=== PATIENT | female | born 1985 | race Two or more races ===

== ENCOUNTER 2024-12-05 10:00 | Outpatient (RCR) | payer MEDICAID, SELFPAY ==
--- NOTE | 2024-11-09 10:15 | PT.OIERPT ---
PT OP Initial Eval Patient Information Outpatient Physical Therapy Treatment Date: 11/09/24 Visit Reasons: BACK PAIN Medical Diagnosis: M51.361 Treatment Dx #1: Back Pain Start of Care: 11/09/24 Smoking Status Smoking Status: Never smoker Initial Assessment Subjective: Pt is a 39 y/o female reports of chronic back pain (01/18) with intermittent pain down the legs. Pt has limitation with sitting, standing, chores, self care, and performing recreational activities. Objective: L/S AROM: all motions are WFL Hip PROM: all motions are WFL Hip MMTs: grossly 4-/5 Special Test (+) SLR (+) GERARDO's (+) slump Assessment: Pt demonstrate back pain with mobility deficits leading to difficulty with ADLs. Pt will attempt physical therapy if pain persist Pt will be refer back to provider for further consultation. Short Term and [employer] Goals 1) Increase L/S AROM WFL in 6 wks to be able to perform recreational activities 2) Decrease back pain to 2/10 in 6 wks to be able to sit and stand more than 30 mins 3) Increase core strength WFL in 6 wks to be able to perform lifting activities 4) Increase hip MMTs grossly 4/5 in 6 wks to be able to walk more than 30 mins 5) Indep with HEP Treatment Plan 1) Manual Therapy 2) Therapeutic Activities 3) Therapeutic Exercises 4) Modalities (ice, heat, traction) Frequency and Duration: 2 x wk for 6 wks Certification Dates: 11/09/24 to 02/09/25 Procedure Charges OP PT Eval Mod Complex 30 minutes: Yes
--- NOTE | 2024-11-16 11:59 | PT.ODAYNRPT ---
PT Outpatient Daily Note OP Daily Note Outpatient Physical Therapy Treatment Date: 11/16/24 Visit Reasons: BACK PAIN Subjective: Pt's back pain is about the same. No change in overall symptoms Objective: Please see flow chart for list of ther ex performed Assessment: tolerate exercises with minimal pain; cues to pace and decrease fatigue since patient has the tendency to perform all exercise with minimal rest Plan: Continue with PT Length of Time (minutes) of Treatment: 30 Minutes Procedure Charges Therapeutic Exercise 30 minutes: Yes
--- NOTE | 2024-11-23 10:58 | PT.ODAYNRPT ---
PT Outpatient Daily Note OP Daily Note Outpatient Physical Therapy Treatment Date: 11/23/24 Visit Reasons: BACK PAIN Subjective: Pt's back is about the same still has pain intermittently. Objective: Please see flow chart for list of ther ex performed Assessment: tolerate exercises with minimal pain Plan: Continue with PT Length of Time (minutes) of Treatment: 30 Minutes Procedure Charges Therapeutic Exercise 30 minutes: Yes
--- NOTE | 2024-12-05 12:02 | PT.ODAYNRPT ---
PT Outpatient Daily Note OP Daily Note Outpatient Physical Therapy Treatment Date: 12/05/24 Visit Reasons: BACK PAIN Subjective: Pt's back is about the same. No change in overall symptoms. Objective: Please see flow chart for list of ther ex performed Assessment: tolerate exercises with minimal pain Plan: Continue with PT Length of Time (minutes) of Treatment: 30 Minutes Procedure Charges Therapeutic Exercise 30 minutes: Yes
== END 2024-12-09 23:59 | disposition home or self-care (01) ==
LOC: CPTX 10:00
PROVIDERS: PCP Specialist; Referring Provider Specialist; Visit Provider Specialist
DX: M51.361 Other intervertebral disc degeneration, lumbar region with lower extremity pain only (principal)
CPT/HCPCS: 97110; 97162

== ENCOUNTER 2024-12-20 10:24 | Outpatient (RCR) | payer MEDICAID, SELFPAY ==
--- NOTE | 2024-12-20 11:23 | PT.ODS1RPT ---
PT OP Progress/Discharge Note Date of Service: 12/20/24 Progress Note/DC Note Progress Note/Discharge Note: DC Note Patient Information Visit Reasons: Back pain Medical Diagnosis: M51.361 Treatment Dx #1: Back Pain Service Discharge Date: 12/20/24 Status Subjective: Pt's back is not better. Pt seems to have more pain lately since she works 6 days out of the week. Pt continues to have intermittent pain down the legs. Pt has limitation with sitting, standing, lifting, chores, and performing work duties. Pt will like to follow up with specialist for further consultation. Objective: L/S AROM: all motions are WFL Hip PROM: all motions are WFL Hip MMTs: grossly 4-/5 Special Test (+) slump (+) SLR (+) GERARDO's Assessment: Pt continues to have back pain with mobility deficits leading to difficulty with ADLs. Pt will no longer benefit from physical therapy due to minimal progress towards goals. Pt was instructed on HEP last session and educated to continue exercises to maintian overall mobility. Pt performed all exercises safely, thank you for your referrals. Plan: D/C home with HEP and follow up with MD MONDRAGON Procedure Charges Therapeutic Exercise 30 minutes: Yes
== END 2025-01-08 23:59 | disposition home or self-care (01) ==
LOC: CPTX 10:24
PROVIDERS: PCP Specialist; Referring Provider Specialist; Visit Provider Specialist
DX: M51.362 Other intervertebral disc degeneration, lumbar region with discogenic back pain and lower extremity pain (principal)
CPT/HCPCS: 97110